=== PATIENT | female | born 1960 | race American Indian/Alaskan Native ===

== ENCOUNTER 2017-04-15 05:39 | Emergency (ER) | payer OTHER ==
[2017-04-15 05:52] VITALS: RESP 18; O2SAT 98
[2017-04-15] MEDS ORDERED: Lidocaine 5% Patch TD STA (06:15)
[2017-04-15] MEDS ORDERED: Oxycodone/Acetaminophen 5/325 mg Tab PO STA (06:21)
--- NOTE | 2017-04-15 06:25 | C.PDOC ---
History Of Present Illness 56 year old female who presents to the ER with a complaint of exacerbation of sciatica that began [employer]. Patient states she used to be on pain management and in physical therapy, however, can no longer go due to insurance issues. Patient is complaining of bilateral lower back pain radiating to the posterior thighs; patient states the pain is similar to prior episodes. Patient reports the pain improves with a back brace but has not relief with diclofenac. Patient has had 10mg percocet but has not taken any in 1 years; denies weakness, numbness, or urinary symptoms. EXAC SCIATICA ONSET T[employer] CON[employer]AIGHT[employer]. PS USED TO BE ON PAIN MGMT AND P.T. BUT NO LONGER GOES DUE TO INSURANCE. PAIN B/L LWOER BACK RADIATION POST THIGHS SIM TO PRIOR EPISODES. IMPROVES W BACK BRACE. NO RELIEF W DICLOFENAC. PS USED TO BE ON PERCOCET 10 MG BUT HASNT TAKEN IN 1 YR. NO OTHER ASSOC SX EXAM MILD DIST NONTOXIC BACK LIMITED ROM DUE TO PAIN. B/L LOWER BACK SPASM W MIN LOCAL TEND NEURO INTACT Time Seen by Provider: 04/15/17 06:09 Chief Complaint (Nursing): Back Pain History Per: Patient History/Exam Limitations: no limitations Onset/Duration Of Symptoms: Hrs Current Symptoms Are (Timing): Still Present Quality Of Discomfort: Unable To Describe Previous Symptoms: Chronic Pain Associated Symptoms: None Recent travel outside of the [place]: No Past Medical History Reviewed: Historical Data, Nursing Documentation, Vital Signs Vital Signs: Last Vital Signs Temp 98 F 04/15/17 05:49 Pulse 74 04/15/17 05:49 Resp 18 04/15/17 05:49 BP 134/90 04/15/17 05:49 Pulse Ox 98 04/15/17 06:26 - Medical History PMH: Back Problems (sciatica) Surgical History: No Surg Hx Family History: States: Unknown Family Hx - Social History Hx Tobacco Use: No Hx Alcohol Use: Yes Hx Substance Use: Yes (denies this visit) - Immunization History Hx Tetanus Toxoid Vaccination: No Hx Influenza Vaccination: No Hx Pneumococcal Vaccination: No Review Of Systems Genitourinary: Negative for: Dysuria, Incontinence, Hematuria Musculoskeletal: Positive for: Back Pain, Leg Pain Neurological: Negative for: Weakness, Numbness Physical Exam - Physical Exam Appears: Non-toxic, Other (Mild distress) Skin: Normal Color, Warm, Dry Head: Atraumatic, Normacephalic Oral Mucosa: Moist Neck: Normal, Supple Back: No Vertebral Tenderness, Muscle Spasm (Bilateral lower back w/ minimal localized tenderness) Extremity: Normal ROM (x4), No Deformity, No Swelling Neurological/Psych: Oriented x3, Normal Speech, Normal Cognition Gait: Steady ED Course And Treatment O2 Sat by Pulse Oximetry: 98 (Room air) Pulse Ox Interpretation: Normal Medical Decision Making Medical Decision Making: Plan: * Neurontin * Lidoderm * Percocet Disposition Counseled Patient/Family Regarding: Diagnosis, Need For Followup, Rx Given - Disposition Referrals: Oscar Casas MD [Primary Care Provider] - Disposition: HOME/ ROUTINE Disposition Time: 06:25 Condition: IMPROVED Prescriptions: Gabapentin [Neurontin] 300 mg PO TID #30 cap Lidocaine 5% [Lidoderm] 1 ea TD PRN PRN #10 patch PRN Reason: Pain, Moderate (4-7) oxyCODONE/Acetaminophen [Percocet 5/325 mg Tab] 1 ea PO Q6 PRN #8 tab PRN Reason: Pain, Moderate (4-7) Instructions: Sciatica (ED) Forms: [employer] (Eth[place]ian) - Clinical Impression Clinical Impression: Sciatica - Scribe Statement The provider has reviewed the documentation as recorded by the Scribe Luther Hair All medical record entries made by the Scribe were at my direction and personally dictated by me. I have reviewed the chart and agree that the record accurately reflects my personal performance of the history, physical exam, medical decision making, and the department course for this patient. I have also personally directed, reviewed, and agree with the discharge instructions and disposition.
[2017-04-15] MEDS ORDERED: Lidocaine 5% Patch TD ONE (06:27)
[2017-04-15] MEDS ORDERED: Oxycodone/Acetaminophen 5/325 mg Tab ONE (06:27)
[2017-04-15 06:40] VITALS: BP 120/81; PULSE 64; TEMP 98.2
== END 2017-04-15 06:40 | disposition home or self-care (01) ==
LOC: C.ER 05:39 → SUPCPDRO 05:39 → C.ER 06:40
DX: M54.30 Sciatica, unspecified side (principal)